=== PATIENT | male | born 1945 | race Caucasian/White ===

== ENCOUNTER 2018-09-26 00:15 | Observation (INO) ==
[2018-09-26] MEDS ORDERED: Ipratropium/Albuterol Neb 3 ML IH ONE ×2 (00:44→00:47)
--- NOTE | 2018-09-26 00:44 | Emergency Department Note ---
Disposition Clinical Impression: Community acquired pneumonia Disposition: Admitted As Inpatient Condition: Fair Instructions: Community-acquired Pneumonia (ED) [facility] Care Provider[facility] - Time of Disposition: 01:32 SOB HPI - General Stated Complaint: bronchitis Time Seen by Provider: 09/26/18 00:30 Source: patient, family Mode of arrival: ambulatory Limitations: no limitations Nursing Notes Reviewed: Yes Vital Signs Reviewed: Yes - History of Present Illness For the last week or so Mr. Correa has had a productive cough and has been short of breath. [facility] about 5 days ago and got prednisone and Zithromax for presumed bronchitis and has not gotten a whole lot better. He has been having the sleep sitting up in a chair because when he lays back his breathing is a lot worse. It is also short of breath on exertion. He uses 's albut alejandro tonight with some relief temporarily. He has no heart history that he knows of. He smoked cigarettes until 1984 and does not use any chronic inhalers and does not have a diagnosis of COPD. He felt similarly last fall and was treated [facility] the [facility] but tells me he had to go back twice in order to get good symptom resolution. No obvious fever or chills but he has felt somewhat hot and cold and clammy earlier tonight. He had an Advil before coming to the ER tonight. No chest pain. He has been eating and drinking normally without any nausea vomiting or diarrhea. No black tarry or obvious blood in the stools no urinary complaints had some ear fullness but no rhinorrhea. He does not wear oxygen at home. He has diabetes and lately his sugars up in the 300s as he has been on prednisone. He tells me that his most recent A1c however was 7.8 at the [facility]. - Related Data Home Medications Medication Instructions Recorded Confirmed Atorvastatin [Lipitor] 40 mg PO HS 11/15/17 09/26/18 Gabapentin [Neurontin] 200 mg PO BID 11/15/17 09/26/18 Insulin Glargine,Hum.rec.anlog 92 unit SQ HS 11/15/17 09/26/18 [Lantus Solostar] Latanoprost [Xalatan] 2.5 ml OP DAILY 11/15/17 09/26/18 Lisinopril/Hydrochlorothiazide 1 each PO BID 11/15/17 09/26/18 [Zestoretic 10-12.5 mg Tablet] metFORMIN [Glucophage] 1,000 mg PO BIDWM 11/15/17 09/26/18 Acetaminophen [Non-Aspirin] 325 mg PO Q4H PRN 09/26/18 09/26/18 Ammonium Lactate [Amlactin] 1 each TP DAILY 09/26/18 09/26/18 Aspirin [Lo-Dose Aspirin EC] 81 mg PO DAILY 09/26/18 09/26/18 Cetirizine HCl [Allergy Relief] 10 mg PO DAILY PRN 09/26/18 09/26/18 Cholecalciferol (D-3) [Vitamin D] 5,000 unit PO DAILY 09/26/18 09/26/18 Fluticasone Propionate [Flovent 2 spray IH BID 09/26/18 09/26/18 Diskus] Gabapentin [Neurontin] 600 mg PO HS 09/26/18 09/26/18 Insulin ASPART [Novolog Flexpen] 0 unit SQ TID 09/26/18 09/26/18 Omeprazole [PriLOSEC] 20 mg PO BIDAC 09/26/18 09/26/18 Timolol [Betimol] 1 drop OP DAILY 09/26/18 09/26/18 Triamcinolone Acet 0.1% CRM 1 appl TP BID 09/26/18 09/26/18 [Kenalog] Previous Rx's Medication Instructions Recorded Meclizine [Antivert] 25 mg PO TID PRN #18 tablet 11/15/17 Allergies Allergy/AdvReac Type Severity Reaction Status Date / Time No Known Allergies Allergy Verified 09/26/18 00:30 Constitutional: Denies: fever, chills ENT ED: Reports: ear pain. Denies: throat pain, congestion Cardiovascular: Reports: dyspnea on exertion. Denies: chest pain Respiratory: Reports: cough, dyspnea, sputum production Gastrointestinal: Denies: nausea, vomiting, diarrhea Genitourinary: Reports: as per HPI Musculoskeletal: Denies: myalgia Integumentary: Denies: rash Neurological: Denies: headache Endocrine: Reports: fatigue Hematological/Lymphatic: Denies: easy bleeding, easy bruising Past Medical History - Past Medical History Medical history: Reports: arthritis, cancer, diabetes, GERD, hyperlipidemia, hypertension, other Psychiatric history: Reports: no psych history - Social History Smoking Status: Never smoker Smokeless Tobacco Status: No Alcohol use: Reports: none Drug use: Reports: none Physical Exam - General Limitations: no limitations General appearance: alert, in no apparent distress, other (Wearing nasal cannula) - Head Head exam: atraumatic, normocephalic - Eye Eye exam: Present: normal appearance - ENT ENT exam: normal exam, mucous membranes moist, TM's normal bilaterally, normal external ear exam, other (Oropharynx slightly erythematous) - Neck Neck exam: Present: normal inspection. Absent: lymphadenopathy - Chest Chest inspection: Present: normal inspection, symmetric chest wall rise - Respiratory Respiratory exam: Present: normal lung sounds bilaterally, other (Able to speak in full sentences). Absent: respiratory distress, wheezes, stridor, accessory muscle use - Cardiovascular Cardiovascular exam: Present: regular rate, normal rhythm, normal heart sounds. Absent: systolic murmur, diastolic murmur - Abdominal Exam Abdominal exam: Present: soft, Non-Tender - Extremities Exam Extremities exam: Present: normal inspection. Absent: pedal edema, calf tenderness (No calf cord erythema or edema) - Neurological Exam Neurological exam: Present: alert - Psychiatric Psychiatric exam: Present: normal affect, normal mood - Skin Skin exam: Present: warm, dry Course Vital Signs Temperature 98.1 F 09/26/18 00:43 Pulse Rate 72 09/26/18 00:43 Respiratory Rate 20 09/26/18 00:43 Blood Pressure 140/105 09/26/18 00:43 O2 Sat by Pulse Oximetry 90 09/26/18 00:43 Temperature 98.1 F 09/26/18 00:43 Pulse Rate 72 09/26/18 00:43 Respiratory Rate 20 09/26/18 00:43 Blood Pressure 140/105 09/26/18 00:43 O2 Sat by Pulse Oximetry 93 09/26/18 01:02 Oxygen Delivery Oxygen Delivery Room Air Shortness of Breath/Dyspnea - MDM Narrative Medical decision making narrative: Community-acquired pneumonia. It appears that clinically speaking she has fi lled Zithromax therapy. We will check a blood culture sputum culture and urine studies to see if we can identify an organism and began IV Levaquin. He is O2 dependent. He first came to the emergency Department at 89-90% on room air but is not a COPD patient therefore is hypoxic. It would be most prudent to keep him in the hospital at least overnight. He agrees. Mr. Correa is a and I called the [facility] at [phone]. Under their directory for admissions extension [phone] was listed which I called and allowed a rang approximately 10 times with no answer and no invitation to a voicemail. I then called the [facility] multiple tube winding machine operator and explained that I would like to transfer a patient to them and was forwarded at that point to a line that rang approximately 10 times with no answer and no invitation to a voicemail. I then called the covering hospitalist here at [place] and presented the case. He accepted admission. Mr. Correa is in stable condition awaiting transfer to the floor. - Lab Data Lab results reviewed: Yes I reviewed the patient's lab results. Result diagrams: 09/26/18 00:55 Lab Results 09/26/18 09/26/18 09/26/18 Range/Units 00:55 00:55 00:55 WBC 12.7 H (4.3-11.1) K/mcL RBC 5.15 (4.19-5.50) M/mcL Hgb 13.6 (12.9-16.9) g/dL Hct 42.9 (37.5-50.1) % MCV 83.3 (83.0-100.0) fL MCH 26.4 L (28.0-33.3) pg MCHC 31.7 (31.6-35.5) g/dL RDW 13.8 (11.5-14.5) % Plt Count 240 (140-400) K/mcL MPV 9.7 (9.4-12.4) fL Immature Gran % 0.9 (0-4) % Seg Neutrophils % 62.7 % Lymphocytes % 22.8 % Monocytes % 11.0 % Eosinophils % 2.1 % Basophils % 0.5 % Neutrophils # 8.0 (1.6-8.9) K/mcL Lymphocytes # 2.9 (0.6-4.6) K/mcL Monocytes # 1.4 H (0.0-1.3) K/mcL Eosinophils # 0.3 (0.0-0.6) K/mcL Basophils # 0.1 (0.0-0.2) K/mcL PT (9.4-12.1) Seconds INR APTT (26.0-36.0) Seconds D-Dimer 219 (0-500) ng/mLFEU Troponin I < 0.03 (< 0.04) ng/mL B-Natriuretic Peptide (Less than 100) pg/mL 09/26/18 09/26/18 Range/Units 00:55 00:55 WBC (4.3-11.1) K/mcL RBC (4.19-5.50) M/mcL Hgb (12.9-16.9) g/dL Hct (37.5-50.1) % MCV (83.0-100.0) fL MCH (28.0-33.3) pg MCHC (31.6-35.5) g/dL RDW (11.5-14.5) % Plt Count (140-400) K/mcL MPV (9.4-12.4) fL Immature Gran % (0-4) % Seg Neutrophils % % Lymphocytes % % Monocytes % % Eosinophils % % Basophils % % Neutrophils # (1.6-8.9) K/mcL Lymphocytes # (0.6-4.6) K/mcL Monocytes # (0.0-1.3) K/mcL Eosinophils # (0.0-0.6) K/mcL Basophils # (0.0-0.2) K/mcL PT 12.6 H (9.4-12.1) Seconds INR 1.1 APTT 27.5 (26.0-36.0) Seconds D-Dimer (0-500) ng/mLFEU Troponin I (< 0.04) ng/mL B-Natriuretic Peptide 85 (Less than 100) pg/mL - Radiology Data Radiology results reviewed: Yes I reviewed the patient's radiology results. - EKG Data EKG attestation: Yes I reviewed and interpreted this EKG. EKG results narrative: EKG as interpreted by me normal sinus rhythm 80 bpm and the rhythm strip there are PVCs of 2 different morphologies. Possible left atrial enlargement. Normal axis. T-wave flattening in aVL no other T-wave abnormalities. No ST elevations or depressions. No evidence of hypertrophy. 11/15/2017 comparison PVCs were of 1 morphology otherwise no significant changes.
[2018-09-26 01:09] LABS: Basophils # 0.1 K/mcL (0.0-0.2); Basophils % 0.5 %; Eosinophils # 0.3 K/mcL (0.0-0.6); Eosinophils % 2.1 %; Hematocrit 42.9 % (37.5-50.1); Hemoglobin 13.6 g/dL (12.9-16.9); Immature Granulocytes % 0.9 % (0-4); Lymphocytes # 2.9 K/mcL (0.6-4.6); Lymphocytes % 22.8 %; Mean Corpuscular HGB Conc 31.7 g/dL (31.6-35.5); Mean Corpuscular Hemoglobin 26.4 pg (28.0-33.3); Mean Corpuscular Volume 83.3 fL (83.0-100.0); Mean Platelet Volume 9.7 fL (9.4-12.4); Monocytes # 1.4 K/mcL (0.0-1.3); Platelet Count 240 K/mcL (140-400); Red Blood Count 5.15 M/mcL (4.19-5.50); Red Cell Distribution Width 13.8 % (11.5-14.5); Segmented Neutrophils % 62.7 %; White Blood Count 12.7 K/mcL (4.3-11.1)
[2018-09-26 01:11] LABS: INR 1.1; Prothrombin Time 12.6 Seconds (9.4-12.1)
[2018-09-26 01:14] LABS: Activated Partial Thrombo Time 27.5 Seconds (26.0-36.0)
[2018-09-26 01:19] LABS: Troponin I < 0.03 ng/mL (< 0.04)
[2018-09-26] MEDS ORDERED: levoFLOXacin 750 MG/150 ML 750 MG/150 ML BAG IVPB ONE ×2 (01:24→01:47)
[2018-09-26] MEDS ORDERED: Loratadine 10 MG TABLET PO PRN (01:47)
[2018-09-26] MEDS ORDERED: Naloxone 0.4 MG/ML INJ IVP PRN (01:47)
[2018-09-26] MEDS ORDERED: Ondansetron 4 MG/2 ML VIAL IVP PRN (01:47)
[2018-09-26 02:17] LABS: Alanine Aminotransferase 19 Units/L (7-52); Albumin 3.6 g/dL (3.5-5.7); Albumin/Globulin Ratio 1.3 (1.1-2.2); Alkaline Phosphatase 43 Units/L (34-104); Aspartate Amino Transferase 20 Units/L (13-39); BUN/Creatinine Ratio 26 (6-26); Bilirubin,Total 0.4 mg/dL (0.3-1.0); Blood Urea Nitrogen 24 mg/dL (8-23); Calcium 10.1 mg/dL (8.6-10.3); Carbon Dioxide 35 mEq/L (23-29); Chloride 94 mEq/L (98-107); Globulin 2.7 g/dL (2.4-3.5); Glucose 187 mg/dL (70-105); Magnesium 1.7 mg/dL (1.6-2.6); Osmolality,Calculated 287 (280-300); Potassium 4.4 mEq/L (3.5-5.1); Sodium 134 mEq/L (136-145); Total Protein 6.3 g/dL (6.4-8.9); eGFR For African Americans > 60 (> 60); eGFR For Non-African Americans > 60 (> 60)
[2018-09-26] MEDS ORDERED: D5% in Water 1,000 ML IVC PRN (02:56)
[2018-09-26] MEDS ORDERED: Dextrose Gel 15 GM/37.5 ML TUBE PO PRN ×2 (02:56)
[2018-09-26] MEDS ORDERED: *HR* Dextrose 50 % in Water (Syg) 50 ML SYRINGE IVP PRN (02:56)
[2018-09-26] MEDS: *HR* Enoxaparin 40 MG/0.4 ML SYRINGE SQ SCH (06:25)
[2018-09-26] MEDS: Insulin LISPRO 300 UNITS/3 ML VIAL SQ SCH ×3 (07:50→16:38)
[2018-09-26] MEDS: Gabapentin 100 MG CAPSULE PO SCH ×2 (07:51→20:44)
[2018-09-26] MEDS: Triamcinolone Acet 0.1% CRM 15 GM TUBE TP SCH ×2 (07:52→20:53)
[2018-09-26] MEDS: Aspirin Enteric Coated 81 MG Tablet PO SCH (07:52)
[2018-09-26] MEDS: *HR* Metformin 500 MG TABLET PO SCH ×2 (07:52→16:39)
[2018-09-26] MEDS: Cholecalciferol (D-3) 1,000 UNIT (25MCG) TABLET PO SCH (07:52)
[2018-09-26] MEDS: Ammonium Lactate 30 APPL/225 GM BOTTLE TP SCH (07:52)
[2018-09-26] MEDS ORDERED: Acetaminophen 325 MG TABLET PO PRN (08:38)
[2018-09-26] MEDS ORDERED: TIMOLOL OP SCH (09:00)
[2018-09-26] MEDS ORDERED: Latanoprost 2.5 ML BOTTLE BOTH EYES SCH (09:00)
[2018-09-26] MEDS: Ipratropium/Albuterol Neb 3 ML IH SCH ×3 (10:30→21:59)
--- NOTE | 2018-09-26 11:12 | Internal Med History&Physical ---
Date of Encounter: 09/26/18 Time of Encounter: 11:08 Assessment and Plan (1) Community acquired pneumonia Current visit: Yes Status: Acute levaquin IV, inhaled meds. O2 per NC, maintaining O2 sats > 92% at 2 liters per NC. afebrile. WBC 12.7 Qualifiers: Laterality: left Lung location: upper lobe of lung Qualified Code(s): J18.1 - Lobar pneumonia, unspecified organism (2) Diabetes type 2, controlled Current visit: Yes Status: Acute Controlled with insulin. Monitor fingerstick blood sugar. Will adjust medicines as necessary. Qualifiers: Diabetes mellitus care home insulin use: with care home use Diabetes mellitus complication status: without complication Qualified Code(s): E11.9 - Type 2 diabetes mellitus without complications; Z79.4 - termination clerk (current) use of insulin (3) Hypertension Current visit: Yes Status: Acute controlled with meds. monitor BP Qualifiers: Hypertension type: essential hypertension Qualified Code(s): I10 - Essential (primary) hypertension Internal Medicine - H&P: HPI Admitted From: Emergency Dept Plans for Post Hospital Care: Home History of present illness: Mr. Correa is a 72 year old male admitted for observation for pneumonia. Patient presented to the ER last night after having a 5 to 6 day history of cough with increased sputum production. Patient was treated at the urgent care for bronchitis, given his feet pack and prednisone. Patient stated he was not getting much better. Chest x-ray positive for left upper lobe pneumonia and right midline multifocal pneumonia.Denies fever, chills, nausea vomiting or diarrhea. Patient is short of breath occasionally with exertion. Denies chest pain. Does take inhalers at home. Not on chronic oxygen. Maintaining oxygen at 2 L per nasal cannula at this time. Past medical history includes arthritis, diabetes, Gerd, hyperlipidemia and hypertension. Patient would prefer to be admitted to the [facility]. at bedside during exam. pt denies smoking hx. lives with , 2 daughters and grandson. 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 Past Med Surg Social Fam HX - Past Medical History Medical history: arthritis, cancer, diabetes, GERD, glaucoma, hyperlipidemia, hypertension, kidney stones, other Additional medical history: Colon Cancer Psychiatric history: no psych history - Past Surgical History Surgical History: appendectomy, cholecystectomy Additional surgical history: colon sx, - Social History Smoking Status: Former smoker Smokeless Tobacco Status: No Alcohol use: none Drug use: none - Family History Father Hx Family Cardiac Disorders: Yes Hx Family Endocrine Disorder: Yes Internal Medicine - H&P: Meds Atorvastatin [Lipitor] 40 mg PO HS 11/15/17 [History] Gabapentin [Neurontin] 200 mg PO BID 11/15/17 [History] Insulin Glargine,Hum.rec.anlog [Lantus Solostar] 92 unit SQ HS 11/15/17 [History] Latanoprost [Xalatan] 2.5 ml OP DAILY 11/15/17 [History] Lisinopril/Hydrochlorothiazide [Zestoretic 10-12.5 mg Tablet] 1 each PO BID 11/15/17 [History] Meclizine [Antivert] 25 mg PO TID PRN #18 tablet 11/15/17 [Rx] metFORMIN [Glucophage] 1,000 mg PO BIDWM 11/15/17 [History] Acetaminophen [Non-Aspirin] 325 mg PO Q4H PRN 09/26/18 [History] Ammonium Lactate [Amlactin] 1 each TP DAILY 09/26/18 [History] Aspirin [Lo-Dose Aspirin EC] 81 mg PO DAILY 09/26/18 [History] Cetirizine HCl [Allergy Relief] 10 mg PO DAILY PRN 09/26/18 [History] Cholecalciferol (D-3) [Vitamin D] 5,000 unit PO DAILY 09/26/18 [History] Fluticasone Propionate [Flovent Diskus] 2 spray IH BID 09/26/18 [History] Gabapentin [Neurontin] 600 mg PO HS 09/26/18 [History] Insulin ASPART [Novolog Flexpen] 0 unit SQ TID 09/26/18 [History] Omeprazole [PriLOSEC] 20 mg PO BIDAC 09/26/18 [History] Timolol [Betimol] 1 drop OP DAILY 09/26/18 [History] Triamcinolone Acet 0.1% CRM [Kenalog] 1 appl TP BID 09/26/18 [History] Allergy/AdvReac Type Severity Reaction Status Date / Time No Known Allergies Allergy Verified 09/26/18 00:30 All Systems PM: A 10-system review of systems was performed and is negative for pertinent findings except as documented above in the HPI. - Constitutional Constitutional: as per HPI, no chills, no fever(s), no night sweats - EENT Eyes: no change in vision, no discharge, no pain, no photophobia Ears: no ear discharge, no ear pain, no tinnitus Nose, mouth and throat: no dysphagia, no nasal discharge, no neck pain, no sore throat - Cardiovascular Cardiovascular ROS IM: no chest pain, no diaphoresis, no dyspnea, no lightheadedness, no palpitations, no syncope - Respiratory Respiratory: no cough, no dyspnea, no wheezing, no excessive phlegm production - Gastrointestinal Gastrointestinal: no abdominal pain, no diarrhea, no hematemesis, no hematochezia, no melena, no nausea, no vomiting - Musculoskeletal Musculoskeletal ROS IM: no numbness, no tingling - Integumentary Integumentary IM: no rash, no unusual bruising - Neurological Neurological ROS: no confusion, no convulsions, no focal weakness, no numbness, no tingling, no tremor(s) - Hematologic/Lymphatic Hematologic/Lymphatic: no easy bruising - Constitutional Vitals: Temp Pulse Resp BP Pulse Ox 98.5 F 80 18 138/78 98 09/26/18 08:53 09/26/18 08:53 09/26/18 10:32 09/26/18 08:53 09/26/18 10:32 General appearance: Present: cooperative, A&O X 3, pleasant, no acute distress, answers questions appropriately - Head Head exam: Present: atraumatic, normocephalic - Eye Eye exam: Present: PERRL, conjuntiva pink, sclera anicteric Pupils: Present: PERRL - Neck Neck exam general surgery: Present: supple, trachea midline. Absent: lymphadenopathy - Respiratory Respiratory exam: Present: CTAB. Absent: accessory muscle use, rales, rhonchi, wheezes - Cardiovascular Cardiovascular exam: Present: RRR, +S1, +S2. Absent: diastolic murmur, gallop, rubs, systolic murmur - GI/Abdominal GI/Abdominal exam: Present: normal bowel sounds, soft, no peritoneal signs. Abs ent: distended, tenderness - Extremities Exam Extremities exam: Present: warm, radial pulses palpable and symmetrical. Absent: calf tenderness, cyanotic, pedal edema - Neurological Exam Neurological exam: Present: CN II-XII intact, oriented X3, no focal deficits. Absent: pronater drift, facial droop, speech deficit - Skin Skin exam: Present: dry, intact Internal Med - H&P Results - Labs CBC & Chem 7: 09/26/18 00:55 09/26/18 00:55 Labs: Short CBC 09/26/18 Range/Units 00:55 WBC 12.7 H (4.3-11.1) K/mcL Hgb 13.6 (12.9-16.9) g/dL Hct 42.9 (37.5-50.1) % Plt Count 240 (140-400) K/mcL Neutrophils # 8.0 (1.6-8.9) K/mcL BMP 09/26/18 00:55 Sodium 134 L Potassium 4.4 Chloride 94 L Carbon Dioxide 35 H BUN 24 H Creatinine 0.92 Glucose 187 H Calcium 10.1 Cardiac Enzymes 09/26/18 Range/Units 00:55 Troponin I < 0.03 (< 0.04) ng/mL Liver Function 09/26/18 Range/Units 00:55 Total Bilirubin 0.4 (0.3-1.0) mg/dL AST 20 (13-39) Units/L ALT 19 (7-52) Units/L Alkaline Phosphatase 43 (34-104) Units/L Albumin 3.6 (3.5-5.7) g/dL - Impressions ITS Impressions Chest X-Ray 09/26/18 00:46 IMPRESSION: Focal peripheral airspace consolidation in the left mid and upper lung zones suggesting left upper lung pneumonia. Possible patchy airspace disease in the right mid lung zone may represent multifocal pneumonia. Recommend follow-up to resolution. D/ / 09/26/2018 07:31:59 Livan Carrizales MD / lia Interpreting Provider: Livan Carrizales MD
--- NOTE | 2018-09-26 11:24 | Discharge Summary ---
Orders not resulted at time of discharge: Pending orders 09/26/18 00:45 EKG [ECG 12 lead ECG] [ECG] Stat 09/26/18 01:35 Culture,Blood [] Stat Legionella Antigen [] Stat Streptococcal pneumoniae urin antigen [S. Pneumoniae Antigen] [] Stat 09/26/18 01:50 Culture,Sputum with Gram Stain [] Stat Date of Encounter: 09/26/18 Time of Encounter: 11:21 - Discharge Diagnosis (1) Community acquired pneumonia Priority: Primary Status: Acute Comments: On IV Levaquin, and help meds, oxygen per nasal cannula. Maintaining O2 sats greater than 92%. Qualifiers: Laterality: left Lung location: upper lobe of lung Qualified Code(s): J18.1 - Lobar pneumonia, unspecified organism (2) Diabetes type 2, controlled Priority: Secondary Status: Chronic Comments: Controlled with current medication. Monitor fingerstick blood sugar. Insulin- dependent. Qualifiers: Diabetes mellitus intermodal customer service insulin use: with senior care use Diabetes mellitus complication status: without complication Qualified Code(s): E11.9 - Type 2 diabetes mellitus without complications; Z79.4 - penitentiary (current) use of insulin (3) Hypertension Priority: Secondary Status: Chronic Comments: Controlled with current medication. Monitor Qualifiers: Hypertension type: essential hypertension Qualified Code(s): I10 - Essential (primary) hypertension Hospital course: Mr. Correa is a 72 year old male transferring to [facility]. Patient was admitted here for observation for pneumonia. Chest x-ray showed left upper lobe pneumonia and right middle lung pneumonia. Was given a dose of IV Levaquin. Patient has very productive cough. On O2 at 2 L. Maintaining O2 sats greater than 92%. Afebrile. WBC 12.7. at bedside. Denies fever, chills, nausea vomiting or diarrhea. Denies chest pain. Does state shortness of breath with exertion. Discharge discussed with: patient, family, nurse - Time Spent with Patient Total time spent providing and/or coordinating discharge services: Time spent: Less than 30 minutes - Discharge Medications Prescriptions: No Action metFORMIN [Glucophage] 1,000 mg PO BIDWM Insulin Glargine,Hum.rec.anlog [Lantus Solostar] 92 unit SQ HS Lisinopril/Hydrochlorothiazide [Zestoretic 10-12.5 mg Tablet] 1 each PO BID Gabapentin [Neurontin] 200 mg PO BID Atorvastatin [Lipitor] 40 mg PO HS Latanoprost [Xalatan] 2.5 ml OP DAILY Meclizine [Antivert] 25 mg PO TID PRN #18 tablet PRN Reason: Dizziness Cholecalciferol (D-3) [Vitamin D] 5,000 unit PO DAILY Triamcinolone Acet 0.1% CRM [Kenalog] 1 appl TP BID Timolol [Betimol] 1 drop OP DAILY Omeprazole [PriLOSEC] 20 mg PO BIDAC Insulin ASPART [Novolog Flexpen] 0 unit SQ TID Gabapentin [Neurontin] 600 mg PO HS Fluticasone Propionate [Flovent Diskus] 2 spray IH BID Cetirizine HCl [Allergy Relief] 10 mg PO DAILY PRN PRN Reason: allergies Aspirin [Lo-Dose Aspirin EC] 81 mg PO DAILY Ammonium Lactate [Amlactin] 1 each TP DAILY Acetaminophen [Non-Aspirin] 325 mg PO Q4H PRN PRN Reason: Pain Home Medications: Atorvastatin [Lipitor] 40 mg PO HS 11/15/17 [History] Gabapentin [Neurontin] 200 mg PO BID 11/15/17 [History] Insulin Glargine,Hum.rec.anlog [Lantus Solostar] 92 unit SQ HS 11/15/17 [History] Latanoprost [Xalatan] 2.5 ml OP DAILY 11/15/17 [History] Lisinopril/Hydrochlorothiazide [Zestoretic 10-12.5 mg Tablet] 1 each PO BID 11/15/17 [History] Meclizine [Antivert] 25 mg PO TID PRN #18 tablet 11/15/17 [Rx] metFORMIN [Glucophage] 1,000 mg PO BIDWM 11/15/17 [History] Acetaminophen [Non-Aspirin] 325 mg PO Q4H PRN 09/26/18 [History] Ammonium Lactate [Amlactin] 1 each TP DAILY 09/26/18 [History] Aspirin [Lo-Dose Aspirin EC] 81 mg PO DAILY 09/26/18 [History] Cetirizine HCl [Allergy Relief] 10 mg PO DAILY PRN 09/26/18 [History] Cholecalciferol (D-3) [Vitamin D] 5,000 unit PO DAILY 09/26/18 [History] Fluticasone Propionate [Flovent Diskus] 2 spray IH BID 09/26/18 [History] Gabapentin [Neurontin] 600 mg PO HS 09/26/18 [History] Insulin ASPART [Novolog Flexpen] 0 unit SQ TID 09/26/18 [History] Omeprazole [PriLOSEC] 20 mg PO BIDAC 09/26/18 [History] Timolol [Betimol] 1 drop OP DAILY 09/26/18 [History] Triamcinolone Acet 0.1% CRM [Kenalog] 1 appl TP BID 09/26/18 [History] Allergies/Adverse Reactions: Allergy/AdvReac Type Severity Reaction Status Date / Time No Known Allergies Allergy Verified 09/26/18 00:30 Date of admission: 09/26/18 01:41 [facility] Discharg[facility] clinician: Tao Adkins Anticipated date of discharge: 09/26/18 - Constitutional Vitals: Temp Pulse Resp BP Pulse Ox 98.5 F 80 18 138/78 98 09/26/18 08:53 09/26/18 08:53 09/26/18 10:32 09/26/18 08:53 09/26/18 10:32 General appearance: Present: cooperative, A&O X 3, pleasant, no acute distress, answers questions appropriately - Head Head exam: Present: atraumatic, normocephalic - Eye Eye exam: Present: PERRL, conjuntiva pink, sclera anicteric Pupils: Present: PERRL - Neck Neck exam general surgery: Present: supple, trachea midline. Absent: lymphadenopathy - Respiratory Respiratory exam: Present: CTAB. Absent: accessory muscle use, rales, rhonchi, wheezes - Cardiovascular Cardiovascular exam: Present: RRR, +S1, +S2. Absent: diastolic murmur, gallop, rubs, systolic murmur - GI/Abdominal GI/Abdominal exam: Present: normal bowel sounds, soft, no peritoneal signs. Abs ent: distended, tenderness - Extremities Exam Extremities exam: Present: warm, radial pulses palpable and symmetrical. Absent: calf tenderness, cyanotic, pedal edema - Neurological Exam Neurological exam: Present: CN II-XII intact, oriented X3, no focal deficits. Absent: pronater drift, facial droop, speech deficit - Skin Skin exam: Present: dry, intact - Patient Status Disposition: Transfer [facility] Condition: Fair Functional capacity at discharge: independent ambulation Overall status at discharge: patient is not back to baseline - Discharge Instructions Forms: ED Satisfaction Letter - Diet and Activity Activity: increase activity as tolerated Diet: diabetic diet
--- NOTE | 2018-09-26 14:39 | Electrocardiograph Report ---
[address] [address] Test Date: 2018-09-26 Pat Name: Estee Correa Department: 2000 Room: 118 Gender: M [employer] Supervisor: DIMITRY : [id number] Requested By: Tono Amezcua Order Number: [id number] Reading MD: Diomedes Shankar Measurements Intervals [place] Rate: 80 P: 8 [place]: 228 QRS: 23 QRSD: 100 T: 56 QT: 344 QTc: 381 Interpretive Statements SINUS RHYTHM WITH FIRST DEGREE AV BLOCK WITH OCCASIONAL VENTRICULAR PREMATURE COMPLEXES POSSIBLE LEFT ATRIAL ENLARGEMENT NONSPECIFIC T-WAVE ABNORMALITY Electronically Signed On 09-26-2018 14:37:34 EDT by Diomedes Shankar
[2018-09-26] MEDS ORDERED: Insulin LISPRO 300 UNITS/3 ML VIAL SQ SCH (21:00)
[2018-09-26] MEDS ORDERED: Insulin DETEMIR 100 UNIT/ML X5UNITS SQ SCH ×2 (21:00)
[2018-09-27] MEDS: Ipratropium/Albuterol Neb 3 ML IH SCH ×2 (03:43→11:17)
[2018-09-27] MEDS: *HR* Enoxaparin 40 MG/0.4 ML SYRINGE SQ SCH (04:19)
[2018-09-27 06:56] VITALS: BP 119/58
[2018-09-27] MEDS: Gabapentin 100 MG CAPSULE PO SCH (08:53)
[2018-09-27] MEDS: Aspirin Enteric Coated 81 MG Tablet PO SCH (08:54)
[2018-09-27] MEDS: *HR* Metformin 500 MG TABLET PO SCH (08:54)
[2018-09-27] MEDS: Cholecalciferol (D-3) 1,000 UNIT (25MCG) TABLET PO SCH (08:54)
[2018-09-27] MEDS: Insulin LISPRO 300 UNITS/3 ML VIAL SQ SCH (08:58)
[2018-09-27] MEDS ORDERED: levoFLOXacin 750 MG/150 ML 750 MG/150 ML BAG IVPB SCH (09:00)
[2018-09-27] MEDS: Ammonium Lactate 30 APPL/225 GM BOTTLE TP SCH (09:01)
[2018-09-27] MEDS: Triamcinolone Acet 0.1% CRM 15 GM TUBE TP SCH (09:01)
--- NOTE | 2018-09-27 10:11 | Discharge Summary ---
Orders not resulted at time of discharge: Pending orders 09/26/18 01:35 Culture,Blood [] Stat Date of Encounter: 09/27/18 Time of Encounter: 10:08 - Discharge Diagnosis (1) Community acquired pneumonia Priority: Primary Status: Acute Comments: Continue Levaquin 750 mg one tablet daily for 10 days. Duonebs per nebulizer every 6 hours as needed. Continue incentive spirometer. Follow up with PCP within one week. Qualifiers: Laterality: left Lung location: upper lobe of lung Qualified Code(s): J18.1 - Lobar pneumonia, unspecified organism (2) Diabetes type 2, controlled Priority: Secondary Status: Chronic Comments: Continue current medications. Monitor fingerstick blood sugar. Follow up with PCP. Qualifiers: Diabetes mellitus meterman insulin use: with meterman use Diabetes mellitus complication status: without complication Qualified Code(s): E11.9 - Type 2 diabetes mellitus without complications; Z79.4 - halfway (current) use of insulin (3) Hypertension Priority: Secondary Status: Chronic Comments: Controlled with current medication. Monitor blood pressure. Follow up with PCP. Qualifiers: Hypertension type: essential hypertension Qualified Code(s): I10 - Essential (primary) hypertension Hospital course: Mr. Correa is a 72 year old male discharging to home with . Patient was admitted here for observation for pneumonia. Chest x-ray showed left upper lobe pneumonia and right middle lung pneumonia. Was given IV Levaquin. Patient has very productive cough. O2 sats 93% with ambulation on room air. Afebrile. WBC 12.7. at bedside. Denies fever, chills, nausea vomiting or diarrhea. Denies chest pain or shortness of breath. States he feels like he is good to go home. Will continue PO Levaquin for 10 days and duonebs inhaled. encouraged continued use of incentive spirometry. follow up with PCP in 1 week. Discharge discussed with: patient, family, nurse - Time Spent with Patient Total time spent providing and/or coordinating discharge services: Time spent: Less than 30 minutes - Discharge Medications Prescriptions: No Action metFORMIN [Glucophage] 1,000 mg PO BIDWM Insulin Glargine,Hum.rec.anlog [Lantus Solostar] 92 unit SQ HS Lisinopril/Hydrochlorothiazide [Zestoretic 10-12.5 mg Tablet] 1 each PO BID Gabapentin [Neurontin] 200 mg PO BID Atorvastatin [Lipitor] 40 mg PO HS Latanoprost [Xalatan] 2.5 ml OP DAILY Meclizine [Antivert] 25 mg PO TID PRN #18 tablet PRN Reason: Dizziness Cholecalciferol (D-3) [Vitamin D] 5,000 unit PO DAILY Triamcinolone Acet 0.1% CRM [Kenalog] 1 appl TP BID Timolol [Betimol] 1 drop OP DAILY Omeprazole [PriLOSEC] 20 mg PO BIDAC Insulin ASPART [Novolog Flexpen] 0 unit SQ TID Gabapentin [Neurontin] 600 mg PO HS Fluticasone Propionate [Flovent Diskus] 2 spray IH BID Cetirizine HCl [Allergy Relief] 10 mg PO DAILY PRN PRN Reason: allergies Aspirin [Lo-Dose Aspirin EC] 81 mg PO DAILY Ammonium Lactate [Amlactin] 1 each TP DAILY Acetaminophen [Non-Aspirin] 325 mg PO Q4H PRN PRN Reason: Pain Home Medications: Atorvastatin [Lipitor] 40 mg PO HS 11/15/17 [History] Gabapentin [Neurontin] 200 mg PO BID 11/15/17 [History] Insulin Glargine,Hum.rec.anlog [Lantus Solostar] 92 unit SQ HS 11/15/17 [History] Latanoprost [Xalatan] 2.5 ml OP DAILY 11/15/17 [History] Lisinopril/Hydrochlorothiazide [Zestoretic 10-12.5 mg Tablet] 1 each PO BID 11/15/17 [History] Meclizine [Antivert] 25 mg PO TID PRN #18 tablet 11/15/17 [Rx] metFORMIN [Glucophage] 1,000 mg PO BIDWM 11/15/17 [History] Acetaminophen [Non-Aspirin] 325 mg PO Q4H PRN 09/26/18 [History] Ammonium Lactate [Amlactin] 1 each TP DAILY 09/26/18 [History] Aspirin [Lo-Dose Aspirin EC] 81 mg PO DAILY 09/26/18 [History] Cetirizine HCl [Allergy Relief] 10 mg PO DAILY PRN 09/26/18 [History] Cholecalciferol (D-3) [Vitamin D] 5,000 unit PO DAILY 09/26/18 [History] Fluticasone Propionate [Flovent Diskus] 2 spray IH BID 09/26/18 [History] Gabapentin [Neurontin] 600 mg PO HS 09/26/18 [History] Insulin ASPART [Novolog Flexpen] 0 unit SQ TID 09/26/18 [History] Omeprazole [PriLOSEC] 20 mg PO BIDAC 09/26/18 [History] Timolol [Betimol] 1 drop OP DAILY 09/26/18 [History] Triamcinolone Acet 0.1% CRM [Kenalog] 1 appl TP BID 09/26/18 [History] Allergies/Adverse Reactions: Allergy/AdvReac Type Severity Reaction Status Date / Time No Known Allergies Allergy Verified 09/26/18 00:30 Date of admission: 09/26/18 01:41 Primary care [facility]: [facility] Discharging clinician: Tao Adkins Anticipated date of discharge: 09/27/18 - Constitutional Vitals: Temp Pulse Resp BP Pulse Ox 98.4 F 77 18 119/58 93 09/27/18 06:55 09/27/18 06:55 09/27/18 06:55 09/27/18 06:55 09/27/18 06:55 General appearance: Present: cooperative, A&O X 3, pleasant, no acute distress, answers questions appropriately - Head Head exam: Present: atraumatic, normocephalic - Eye Eye exam: Present: PERRL, conjuntiva pink, sclera anicteric Pupils: Present: PERRL - Neck Neck exam general surgery: Present: supple, trachea midline. Absent: lymphadenopathy - Respiratory Respiratory exam: Present: CTAB. Absent: accessory muscle use, rales, rhonchi, wheezes - Cardiovascular Cardiovascular exam: Present: RRR, +S1, +S2. Absent: diastolic murmur, gallop, rubs, systolic murmur - GI/Abdominal GI/Abdominal exam: Present: normal bowel sounds, soft, no peritoneal signs. Absent: distended, tenderness - Extremities Exam Extremities exam: Present: warm, radial pulses palpable and symmetrical. Absen t: calf tenderness, cyanotic, pedal edema - Neurological Exam Neurological exam: Present: CN II-XII intact, oriented X3, no focal deficits. Absent: pronater drift, facial droop, speech deficit - Skin Skin exam: Present: dry, intact - Patient Status Disposition: Home, Self-Care Condition: Good Functional capacity at discharge: independent ambulation Overall status at discharge: patient is progressing back to baseline - Discharge Instructions Follow [facility] With: [facility] [Primary Care Provider[facility] - Forms: ED Satisfaction Letter - Diet and Activity Activity: increase activity as tolerated Diet: diabetic diet
== END 2018-09-27 11:43 | disposition home or self-care (01) ==
LOC: EMEROOGRE 00:15 → INPGRE 00:15